=== PATIENT | female | born 1965 | race Caucasian/White ===

== ENCOUNTER 2017-11-19 10:31 | Inpatient (IN) | payer BC ==
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
[2017-11-19] MEDS ORDERED: NS 0.9% 1000 ML* 1,000 ML IV ONE ×2 (12:31→15:40)
[2017-11-19] MEDS ORDERED: Ketorolac INJ* 30 MG/ML 1 ML VIAL IV PUSH ONE (12:31)
[2017-11-19] MEDS ORDERED: Ciprofloxacin 400MG IVPREMIX(* 400 MG/200 ML BAG IVPB ONE (12:31)
[2017-11-19 12:44] LABS: ABS Basophils 0 10^3/ul (0-0.2); ABS Eosinophils 0 10^3/ul (0-0.6); ABS Lymphocytes 0.8 10^3/ul (1.0-4.8); ABS Monocytes 0.9 10^3/ul (0-0.8); ABS Neutrophils 12.6 10^3/ul (1.5-7.7); ABS Nucleated RBC 0 10^3/ul; Eosinophil % 0 % (0-6); Hematocrit 40 % (35-47); Hemoglobin 13.5 g/dl (12.0-16.0); Lymphocyte % 5.4 % (25-47); Mean Corpuscular HGB Conc 34 g/dl (31-36); Mean Corpuscular Hemoglobin 31 pg (27-31); Mean Corpuscular Volume 89 fL (80-97); Mean Platelet Volume 7.5 um3 (7.4-10.4); Nucleated Red Blood Cells % 0; Platelet Count 272 10^3/ul (150-450); Red Blood Count 4.43 10^6/ul (4.00-5.40); Red Cell Distribution Width 14 % (10.5-15); White Blood Count 14.3 10^3/ul (3.5-10.8)
[2017-11-19 13:02] LABS: EGFR Non-African American 75.8 (>60)
[2017-11-19 13:33] LABS: Urine Appearance Cloudy; Urine Blood 2+ (Negative); Urine Color Amber; Urine Ketones Trace (Negative); Urine Protein 2+(100 mg/dL) (Negative); Urine Red Blood Cell 3+(>10/hpf) (Absent); Urine Specific Gravity 1.011 (1.010-1.030); Urine Urobilinogen Negative (Negative); Urine White Blood Cell 3+(>20/hpf) (Absent)
[2017-11-19] MEDS ORDERED: Albuterol HFA INHALER* 8 gm MDI INH PRN (16:20)
[2017-11-19] MEDS ORDERED: Acetaminophen TAB* 325 MG PO PRN (16:22)
[2017-11-19] MEDS ORDERED: NS 0.9% 1000 ML* 1,000 ML IV SCH (16:30)
--- NOTE | 2017-11-19 17:12 | RAD ---
CLINICAL HISTORY: Right flank pain and dysuria x2 days COMPARISON: None TECHNIQUE: Noncontrast CT examination of the abdomen and pelvis from the lung bases through the initial tuberosities. FINDINGS: VISUALIZED LUNG BASES: The visualized lung bases are grossly clear. There is no pleural effusion. ABDOMEN AND PELVIS: Evaluation of the solid organs and vasculature is limited without intravenous contrast. The liver, spleen, pancreas and adrenal glands are grossly normal in appearance. The gallbladder is normal. The kidneys are normal in appearance without focal mass, calcification or signs of hydronephrosis. Evaluation of the gastrointestinal tract is limited without oral contrast. The small and large bowel are not distended.The patient's normal appendix is identified in the right lower quadrant measuring 5 mm in diameter with gas in the lumen (coronal image 44). There is an increased number of periaortic retroperitoneal lymph nodes but none are pathologically enlarged measuring only up to 9 mm in short axis diameter (coronal image 41 and 38).). The pelvic viscera is normal in appearance. The abdominal aorta and iliac arteries are normal in course and diameter. Degenerative changes include multilevel loss of intervertebral disc height involving the lower thoracic and lumbar spine.There are no sinister bone lesions. IMPRESSION: 1. There are no renal calculi or signs of obstructive uropathy bilaterally. 2. There are overall increase in number of periaortic retroperitoneal lymph nodes measuring up to 9 mm and short axis diameter without a CT apparent clear etiology. There are no prior CT examinations available for comparison to comment on chronicity. The differential includes infectious, inflammatory and/or neoplastic etiologies.
[2017-11-19] MEDS: Morphine VIAL* 4 MG/ML VIAL (1 ml vial) IV PRN ×2 (17:55→21:58)
[2017-11-19] MEDS: Atorvastatin* 20 MG TAB PO SCH (17:57)
--- NOTE | 2017-11-19 20:28 | HP ---
CC: Dr. Iraheta * [facility] MEDICINE HISTORY AND PHYSICAL: DATE OF ADMISSION: 11/19/17 PRIMARY CARE PHYSICIAN: Dr. Iraheta. ATTENDING PHYSICIAN: Dr. Sarah Singh * (dictation provided by Jocelyn Quintana NP ). CHIEF COMPLAINT: Low back and low abdominal pain with pressure with urination. HISTORY OF PRESENT ILLNESS: Ms. Ramirez is a 52-year-old female with a past medical history of PTSD, depression, and anxiety with asthma, who presents today to the hospital with concern for low back, low abdominal pain, and pressure with urination. Ms. Ramirez states that her symptoms began 2 days ago. She had discomfort all across her low back and all across her lower abdomen. She describes having significant and very painful pressure with any attempt of urination. She describes it is being worse since giving to her child. She states that she has been warm and cold at times, but did not check her temperature and she thinks she might have had a fever. She denies any nausea or vomiting. She has been tolerating food okay. She denies any diarrhea. She denies ever having history of urinary tract infection in the past. She denies history of kidney stone. Ms. Ramirez went to the [facility] and was immediately sent here to the emergency room. She here had urinalysis showing leuk esterase 3+, nitrite positive, no bacteria. She has a white blood cell count of 14.3. She is afebrile. Her BUN and creatinine are normal. A CT of her abdomen and pelvis is pending. She does meet sepsis criteria with mild tachycardia and the heart rate 105 and the leukocytosis. Her blood pressure was stable at 120/88. Her lactic acid is normal. Blood cultures have been sent. Antibiotics and IV fluids have been given. PAST MEDICAL HISTORY: 1. History of PTSD, depression and anxiety, admission to mental health unit in 2013 for suicidal ideation. 2. Traumatic brain injury. 3. Asthma. 4. Seasonal allergies. MEDICATIONS: 1. Doxepin 2 tabs p.o. at bedtime. 2. Ibuprofen 800 mg p.o. daily. 3. Atorvastatin 20 mg p.o. q.p.m. 4. Aspirin 325 mg p.o. daily. 5. Imipramine 100 mg p.o. b.i.d. The patient states she takes 3 inhalers, but does not know anymore about which one they are. ALLERGIES: No known drug allergies. FAMILY HISTORY: The patient states she does not know anything about her father or that side of family, but her mother related to Alzheimer's, but also had history of 3 cancers previous to that. SOCIAL HISTORY: The patient is a continued smoker, she smokes about 5 cigarettes a day now. She drinks about 2 beers a day now. She denies any drug use. She states that her cousin, Aaron, would be the healthcare proxy. REVIEW OF SYSTEMS: A 14-point review of systems was completed with Ms. Ramirez and all those not mentioned above were negative. PHYSICAL EXAMINATION GENERAL: Ms. Ramirez is lying on her stomach on the bed. She is crying, but in no acute distress. VITAL SIGNS: Temperature 98.6, pulse rate 105, respiratory rate 18, O2 saturation 97% on room air, blood pressure 120/88. LUNGS: Clear to auscultation bilaterally with no accessory muscle use and good aeration. HEART: S1, S2. No murmur, rub, or gallop. Rapid and regular. ABDOMEN: Soft. There is some mild tenderness to deep palpation in the low abdomen. There is tenderness to CVA area with palpation. EXTREMITIES: No cyanosis, no edema. NEURO: She is alert. She is oriented x3. She moves all extremities equally. There is no facial asymmetry or focal weakness. Extraocular movements are intact. SKIN: Intact. The patient does have noted bruise to her popliteal region of her left leg. She also has some healing bruise on the right leg. 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 LABORATORY DATA: Sodium 135, potassium 3.8, chloride 99, serum bicarbonate 28 , BUN 11, creatinine 0.79, glucose 119, lactic acid 1.0. CRP 127.78. Lipase is less than 10. WBC 14.3, hemoglobin 13.5, hematocrit 40, platelet count 272. Urine shows positive nitrite, 3+ leuk esterase, and no bacteria. ASSESSMENT: Ms. Ramirez is a 52-year-old female with a past medical history of depression, anxiety, posttraumatic stress disorder, who presents today to the hospital with concern for low back pain, low abdominal pain and pressure with urination, found to have suspicion for urinary tract infection, likely with pyelonephritis and sepsis. Our plans are for inpatient admission as I expect her length of stay to be greater than 2 days with followin. Sepsis secondary to pyelonephritis. The patient's urinalysis is positive. She has an elevated CRP. She has an elevated leukocytosis and she is mildly tachycardic. She meets criteria for sepsis. Plans will be for intravenous fluid, which have been initiated in the ED. She will have ciprofloxacin continued that has been initiated in the ED. She will have blood cultures, which have been drawn. Her lactic acid is to be repeated at 5:00. The first lactic acid is negative. She will have pain medication p.r.n. We will monitor urine cultures closely. The patient's CT of the abdomen and pelvis is pending. If she has a kidney stone, she will likely require a transfer out from the ED as there is no urology coverage this weekend and it would be inappropriate to admit for an infected kidney stone without such coverage. 2. Posttraumatic stress disorder, depression, and anxiety. Plan to continue her imipramine. Doxepin is not available on formulary, but she can take that if she brought it from home. 3. DVT prophylaxis with heparin subcu. 4. Code status is full code. TIME SPENT: Approximately 60 minutes were spent on the admission of this patient, more than half time was spent with the patient at the bedside reviewing the events leading up to this admission, performing physical examination, and reviewing the plan of care. JOCELYN QUINTANA NP [id number]/[facility] #: [id number] GRISEL
[2017-11-19] MEDS: CMC:Imipramine (NF) 25 MG TAB PO SCH (21:20)
[2017-11-19] MEDS: Heparin VIAL(*) 5000 UNITS/ML VIAL (FIVE THOUSAND) SUBCUT SCH (21:34)
[2017-11-19] MEDS: Ciprofloxacin 400MG IVPREMIX(* 400 MG/200 ML BAG IVPB SCH (23:21)
[2017-11-20] MEDS: Morphine VIAL* 4 MG/ML VIAL (1 ml vial) IV PRN ×3 (05:54→16:37)
[2017-11-20] MEDS: Heparin VIAL(*) 5000 UNITS/ML VIAL (FIVE THOUSAND) SUBCUT SCH ×3 (05:55→20:34)
[2017-11-20 06:48] LABS: ABS Basophils 0 10^3/ul (0-0.2); ABS Eosinophils 0 10^3/ul (0-0.6); ABS Lymphocytes 0.9 10^3/ul (1.0-4.8); ABS Monocytes 1.1 10^3/ul (0-0.8); ABS Neutrophils 9.5 10^3/ul (1.5-7.7); ABS Nucleated RBC 0 10^3/ul; Eosinophil % 0.1 % (0-6); Hematocrit 36 % (35-47); Hemoglobin 12.1 g/dl (12.0-16.0); Lymphocyte % 7.6 % (25-47); Mean Corpuscular HGB Conc 34 g/dl (31-36); Mean Corpuscular Hemoglobin 30 pg (27-31); Mean Corpuscular Volume 90 fL (80-97); Mean Platelet Volume 7.2 um3 (7.4-10.4); Nucleated Red Blood Cells % 0; Platelet Count 235 10^3/ul (150-450); Red Blood Count 3.98 10^6/ul (4.00-5.40); Red Cell Distribution Width 15 % (10.5-15); White Blood Count 11.5 10^3/ul (3.5-10.8)
[2017-11-20 07:04] LABS: EGFR Non-African American 90.2 (>60)
[2017-11-20] MEDS: Aspirin TAB* 325 MG PO SCH (08:23)
[2017-11-20] MEDS: CMC:Imipramine (NF) 25 MG TAB PO SCH ×2 (08:23→20:35)
--- NOTE | 2017-11-20 09:40 | PN ---
Subjective Date of Service: 11/20/17 Interval History: Pt still c/o "back pain". Has had urinary frequency and lower abd pain for at least several days now Objective Active Medications: Acetaminophen (Tylenol Tab*) 650 mg PO Q6H PRN PRN Reason: pain/fever Albuterol (Ventolin Hfa Inhaler*) 1 puff INH Q4H PRN PRN Reason: SOB/WHEEZING Aspirin (Aspirin Tab*) 325 mg PO DAILY [facility] Last Admin: 11/20/17 08:23 Dose: 325 mg Atorvastatin Calcium (Lipitor*) 20 mg PO QPM [facility] Last Admin: 11/19/17 17:57 Dose: 20 mg Heparin Sodium (Porcine) (Heparin Vial(*)) 5,000 units SUBCUT Q8HR [facility] Last Admin: 11/20/17 05:55 Dose: 5,000 units Ciprofloxacin/Dextrose (Cipro 400 Mg Ivpremix(*)) 400 mg in 200 mls @ 200 mls/ hr IVPB Q12H [facility] Last Admin: 11/19/17 23:21 Dose: 200 mls/hr Imipramine HCl (Imipramine (Nf)) 100 mg PO BID [facility] Last Admin: 11/20/17 08:23 Dose: 100 mg Morphine Sulfate (Morphine Vial*) 4 mg IV Q4H PRN PRN Reason: PAIN Last Admin: 11/20/17 05:54 Dose: 4 mg Nicotine (Nicotine Patch 14 Mg/24 Hr*) 1 patch TRANSDERM DAILY [facility] Oxycodone/Acetaminophen (Percocet 5/325 Tab*) 1 tab PO Q4H PRN PRN Reason: PAIN Vital Signs - 8 hr 11/20/17 11/20/17 11/20/17 03:53 05:54 07:36 Temperature 98.1 F 98.0 F Pulse Rate 98 98 Respiratory 18 16 18 Rate Blood Pressure 109/59 136/70 (mmHg) O2 Sat by Pulse 97 98 Oximetry 11/20/17 11/20/17 08:26 09:28 Temperature Pulse Rate Respiratory 16 16 Rate Blood Pressure (mmHg) O2 Sat by Pulse Oximetry Oxygen Devices in Use Now: None Appearance: 52 yo F in nAD, aAOx3 Eyes: No Scleral Icterus, PERRLA Ears/Nose/Mouth/Throat: NL Teeth, Lips, Gums, Mucous Membranes Moist Neck: NL Appearance and Movements; NL JVP, Trachea Midline Respiratory: Symmetrical Chest Expansion and Respiratory Effort, Clear to Auscultation Cardiovascular: NL Sounds; No Murmurs; No JVD Abdominal: NL Sounds; No Tenderness; No Distention, - - left flank tenderness Lymphatic: No Cervical Adenopathy Extremities: No Edema, No Clubbing, Cyanosis Skin: No Rash or Ulcers, No Nodules or Sclerosis Neurological: Alert and Oriented x 3, NL Muscle Strength and Tone Result Diagrams: 11/20/17 06:33 11/20/17 06:33 Microbiology and Other Data: Microbiology 11/19/17 12:29 Aerobic Blood Culture - Preliminary Blood Venous Escherichia Coli Anaerobic Blood Culture - Preliminary Escherichia Coli 11/19/17 13:05 Anaerobic Blood Culture - Preliminary Blood Venous Escherichia Coli Assess/Plan/Problems-Billing Assessment: 52 yo F with h/o depression presents with pyelonephritis - Patient Problems (1) Pyelonephritis Comment: sepsis was noted at admission blood cx with E. coli + cont Cipro Awaiting sensitivities cont hospital stay due to gram neg bacteremia (2) Depressive disorder Comment: controlled, cont imipramine (3) DVT prophylaxis Comment: HSQ Status and Disposition: inpatient
[2017-11-20] MEDS: Nicotine PATCH 14 MG/24 HR* PATCH TRANSDERM SCH (10:29)
[2017-11-20] MEDS: Ciprofloxacin 400MG IVPREMIX(* 400 MG/200 ML BAG IVPB SCH ×2 (10:30→22:58)
[2017-11-20] MEDS: oxyCODONE/Acetamin 5/325 MG* TAB PO PRN ×2 (14:59→20:35)
[2017-11-20] MEDS: Atorvastatin* 20 MG TAB PO SCH (16:38)
[2017-11-20] MEDS ORDERED: Nicotine Patch Removal NOTE PATCH OFF SCH (21:00)
[2017-11-21] MEDS: Heparin VIAL(*) 5000 UNITS/ML VIAL (FIVE THOUSAND) SUBCUT SCH (05:10)
[2017-11-21] MEDS: oxyCODONE/Acetamin 5/325 MG* TAB PO PRN (05:10)
[2017-11-21 07:01] LABS: ABS Basophils 0 10^3/ul (0-0.2); ABS Eosinophils 0 10^3/ul (0-0.6); ABS Lymphocytes 0.5 10^3/ul (1.0-4.8); ABS Monocytes 0.8 10^3/ul (0-0.8); ABS Neutrophils 4.3 10^3/ul (1.5-7.7); ABS Nucleated RBC 0 10^3/ul; Eosinophil % 0.1 % (0-6); Hematocrit 34 % (35-47); Hemoglobin 11.5 g/dl (12.0-16.0); Lymphocyte % 9.5 % (25-47); Mean Corpuscular HGB Conc 34 g/dl (31-36); Mean Corpuscular Hemoglobin 31 pg (27-31); Mean Corpuscular Volume 89 fL (80-97); Mean Platelet Volume 7.7 um3 (7.4-10.4); Nucleated Red Blood Cells % 0; Platelet Count 239 10^3/ul (150-450); Red Blood Count 3.75 10^6/ul (4.00-5.40); Red Cell Distribution Width 15 % (10.5-15); White Blood Count 5.8 10^3/ul (3.5-10.8)
[2017-11-21 07:20] LABS: EGFR Non-African American 81.8 (>60)
[2017-11-21] MEDS: Aspirin TAB* 325 MG PO SCH (09:02)
[2017-11-21] MEDS: Nicotine PATCH 14 MG/24 HR* PATCH TRANSDERM SCH (09:02)
[2017-11-21] MEDS: CMC:Imipramine (NF) 25 MG TAB PO SCH (09:02)
[2017-11-21] MEDS: Ciprofloxacin 400MG IVPREMIX(* 400 MG/200 ML BAG IVPB SCH (10:41)
[2017-11-21 13:55] VITALS: BP 143/76
--- NOTE | 2017-11-22 02:22 | DS ---
CC: Dr. Iraheta * DISCHARGE SUMMARY: DATE OF ADMISSION: 11/19/17 DATE OF DISCHARGE: 11/21/17 PRIMARY CARE PROVIDER: Dr. Iraheta. DISCHARGE DIAGNOSES: Sepsis due to left-sided pyelonephritis with resultant Escherichia bacteremia. SECONDARY DIAGNOSES: 1. History of posttraumatic stress disorder. 2. History of traumatic brain injury. 3. History of asthma. 4. History of seasonal allergies. MEDICATIONS AT DISCHARGE: Include 1. cefdinir 300 mg p.o. b.i.d. for a total of 12 days. The remaining medications are unchanged and include: 1. Aspirin 325 mg daily. 2. Lipitor 20 mg daily. 3. Doxepin 50 mg at bedtime. 4. Ibuprofen on a p.r.n. basis. 5. Imipramine 100 mg b.i.d. 6. Inhalers as previously taken. LABORATORY DATA AND STUDIES PERFORMED DURING THE HOSPITAL STAY: Included: On , white blood cell count of 24, hemoglobin of 11.5, hematocrit 34, and platelets of 239. Sodium was 136, potassium 4.0, chloride 103, carbon dioxide 28, BUN 7, creatinine 0.74. Microbiology test showed urine cultures grew positive for E. coli. Blood cultures were also positive for E. coli. E. coli was sensitive to all the antibiotics tested apart from ampicillin. Abdomen and pelvis CT obtained on admission, impression: "There are no renal calculi or signs of obstructive uropathy bilateral. There is overall increase in number of periaortic retroperitoneal lymph nodes measuring up to 9 mm in short axis diameter without CT upon unclear etiology. There are no prior CT examination available for comparison to comment on chronicity. Differential includes infectious, inflammatory, and neoplastic etiologies." HOSPITALIZATION COURSE: Mrs. Ramirez is a 52-year-old female who presented to the hospital with complaints of low back pain, pressure with urination. The patient had a temperature of 102 Fahrenheit maximum throughout hospital stay. She had leukocytosis at admission and tachycardia. She was diagnosed with sepsis and the source was likely urinary. Initially, she complained of bilateral flank pain, but on the second day of her admission, she had CVA tenderness in the left side. She was diagnosed with left-sided pyelonephritis. Her blood cultures 2 times were positive for E. coli, where she was treated with ciprofloxacin with good result. By the time of discharge, her left-sided flank pain was controlled with pain medications. She is going to be discharged home. Recommendation to follow up with her primary care provider in approximately 4 to 7 days. She is to take cefdinir for 12 days to complete a 14-day antibiotic course for her urosepsis. PHYSICAL EXAMINATION AT THE TIME OF DISCHARGE: Blood pressure of 117/67, heart rate of 91 and regular, respiratory rate 18, oxygen saturation 97% on room air, temperature 98.2. General: The patient is a very pleasant 52-year-old female who is in no acute distress. Alert, awake, and oriented x3. HEENT: Head: Atraumatic, normocephalic. Eyes: Pupils are equal and reactive to light and accommodation. Oropharynx clear. Mucosa moist. Neck: Supple. No JVD. No bruit bilaterally. Cardiovascular: Regular rate and rhythm. No murmur. Respiratory: Clear to auscultation bilaterally. Abdomen is soft, nontender. Bowel sounds present in all 4 quadrants. There is no CVA tenderness on bilateral flank evaluation. Extremities: There is no edema. Pulses +2 bilaterally. There is no clubbing or cyanosis. Please note that this is a short summary of the patient's hospital stay. Please refer to further medical records for details. TIME SPENT: Approximately 40 minutes were spent on the patient's discharge. [id number]/[facility] #: [id number] MTDD
== END 2017-11-21 13:55 | disposition home or self-care (01) | DRG 720 ==
LOC: ED 10:31 → MED 16:16 → UNDODISIN 11-21 14:16
PROVIDERS: ADMIT Internal Medicine; ATTEND Internal Medicine
DX: A41.51 Sepsis due to Escherichia coli [E. coli] (principal); N12 Tubulo-interstitial nephritis, not specified as acute or chronic; B96.20 Unspecified Escherichia coli [E. coli] as the cause of diseases classified elsewhere; F43.10 Post-traumatic stress disorder, unspecified; J45.909 Unspecified asthma, uncomplicated; F41.8 Other specified anxiety disorders; F17.210 Nicotine dependence, cigarettes, uncomplicated; Z80.9 Family history of malignant neoplasm, unspecified; Z79.1 Long term (current) use of non-steroidal anti-inflammatories (NSAID); Z87.820 Personal history of traumatic brain injury; Z79.82 Long term (current) use of aspirin; Z79.899 Other long term (current) drug therapy
CPT/HCPCS: 36415; 74176; 80048; 80053; 81003; 81015; 83605; 83690; 85025; 86140; 87040; 87077; 87086; 87186; 87205; 90686; 99285; 99406; A9270-GY; J0744; J1644; J1885; J2270